=== PATIENT | male | born 1970 ===

== ENCOUNTER → 2025-06-01 | Outpatient (CLI) | payer MEDICARE, MEDICAID | LOC: ORTHO 02:32 | PROVIDERS: ATTEND Orthopaedic Surgery | DX: M25.512 Pain in left shoulder (principal) ==

== ENCOUNTER 2025-06-27 02:20 | Emergency (ER) | payer MEDICARE, MEDICAID ==
[2025-06-27] MEDS ORDERED: Bacitracin Zinc 14 GM TUBE T ONE (03:50)
== END 2025-06-27 04:31 | disposition home or self-care (01) ==
LOC: ED 02:20
DX: R51.9 Headache, unspecified (principal); Z88.1 Allergy status to other antibiotic agents; Z88.8 Allergy status to other drugs, medicaments and biological substances; W06.XXXA Fall from bed, initial encounter; Y93.89 Activity, other specified; Y92.89 Other specified places as the place of occurrence of the external cause; Y99.8 Other external cause status